=== PATIENT | female | born 1990 | race African-American/Black ===

== ENCOUNTER 2021-11-29 16:49 | Emergency (ER) | payer OTHER ==
[~2021-11-29] VITALS: Ht 170.2 cm; Wt 79.9 kg
[2021-11-29] MEDS ORDERED: LIDOCAINE 5% (LIDODERM) PATCH TD ONE (20:05)
[2021-11-29] MEDS ORDERED: KETOROLAC 30 MG/ML 1ML VIAL IM ONE (20:45)
[2021-11-29] MEDS: methocarbamoL 500 MG TAB PO ONE ×2 (21:45→21:49)
[2021-11-29] MEDS ORDERED: METH-1164 PO (21:45)
[2021-11-29 21:54] VITALS: BP 112/72
[2021-11-30] MEDS ORDERED: **NOTE PATIENT COMMENT** MISC XX ONE (08:00)
== END 2021-11-29 21:57 | disposition home or self-care (01) ==
LOC: M ED 16:49
DX: M54.2 Cervicalgia (principal); M25.512 Pain in left shoulder; V49.40XA Driver injured in collision with unspecified motor vehicles in traffic accident, initial encounter; Y92.410 Unspecified street and highway as the place of occurrence of the external cause; Y99.9 Unspecified external cause status
CPT/HCPCS: 72125; 73030; 84702; 96372; 99284; J1885

== ENCOUNTER 2022-06-10 09:24 | Emergency (ER) | payer OTHER ==
[~2022-06-10] VITALS: Ht 170.2 cm; Wt 78.0 kg
[~2022-06-10 09:24] MED LIST: METH-1164 PO
[2022-06-10] MEDS ORDERED: KETOROLAC 60MG 2ML VIAL IM ONE (10:20)
[2022-06-10] MEDS ORDERED: OXYMETAZOLINE 0.05% NASAL SPRAY (AFRIN) ONE (10:25)
[2022-06-10 11:36] VITALS: BP 136/88
== END 2022-06-10 11:39 | disposition home or self-care (01) ==
LOC: M ED 09:24
DX: U07.1 COVID-19 (principal); G43.909 Migraine, unspecified, not intractable, without status migrainosus
CPT/HCPCS: 96372; 99283; J1885